=== PATIENT | male | born 1985 | race Two or more races ===

== ENCOUNTER 2017-03-03 09:48 | Emergency (ER) | payer BC ==
[2017-03-03] MEDS ORDERED: PREDNISONE 20 MG TABLET PO ONE (11:01)
[2017-03-03] MEDS ORDERED: ALBUTEROL SULFATE HFA (90 MCG/PUFF) 8 GM MDI (1 MDI/ER DISP) IH ONE (11:03)
[2017-03-03] MEDS ORDERED: PREDNISONE 20 MG TABLET ONE ×2 (11:13→11:14)
--- NOTE | 2017-03-03 11:13 | ER Document Report ---
ED General - General Chief Complaint: Chest Tightness Stated Complaint: SHORTNESS OF BREATHE Time Seen by Provider: 03/03/17 10:56 TRAVEL OUTSIDE OF THE [place] IN LAST 30 DAYS: No - HPI Patient complains to provider of: Shortness of breath chest tightness cough Notes: Patient coming in for evaluation of chest tightness shortness of breath and cough is ongoing since Sunday. 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 Denies any fevers chills nausea vomiting denies any recent travel denies history of smoking alcohol or drug abuse. Patient is actively coughing nonproductive upon my evaluation. - Related Data Allergies/Adverse Reactions: No Known Allergies Allergy (Verified 03/03/17 10:03) Past Medical History - Social History Smoking Status: Never Smoker Chew tobacco use (# tins/day): No Frequency of alcohol use: Occasional Drug Abuse: None Family History: Reviewed & Not Pertinent Patient has suicidal ideation: No Patient has homicidal ideation: No Renal/ Medical History: Denies: Hx Peritoneal Dialysis Review of Systems - Review of Systems Constitutional: No symptoms reported EENT: No symptoms reported Cardiovascular: No symptoms reported Respiratory: Short of breath Gastrointestinal: No symptoms reported Genitourinary: No symptoms reported Male Genitourinary: No symptoms reported Musculoskeletal: No symptoms reported Skin: No symptoms reported Hematologic/Lymphatic: No symptoms reported Neurological/Psychological: No symptoms reported -: Yes All other systems reviewed and negative Physical Exam - Vital signs Vitals: Temp Pulse Resp BP Pulse Ox 99.2 F 69 16 145/81 H 96 03/03/17 09:57 03/03/17 09:57 03/03/17 09:57 03/03/17 09:57 03/03/17 09:57 Interpretation: Normal - General General appearance: Appears well, Alert - HEENT Head: Normocephalic, Atraumatic Eyes: Normal Pupils: PERRL - Respiratory Respiratory status: No respiratory distress Chest status: Nontender Breath sounds: Wheezing - Scattered Chest palpation: Normal - Cardiovascular Rhythm: Regular Heart sounds: Normal auscultation Murmur: No - Abdominal Inspection: Normal Distension: No distension Bowel sounds: Normal Tenderness: Nontender Organomegaly: No organomegaly - Back Back: Normal, Nontender - Extremities General upper extremity: Normal inspection, Nontender, Normal color, Normal ROM , Normal temperature General lower extremity: Normal inspection, Nontender, Normal color, Normal ROM , Normal temperature, Normal weight bearing. No: Aydee's sign - Neurological Neuro grossly intact: Yes Cognition: Normal Orientation: AAOx4 Quirino Coma Scale Eye Opening: Spontaneous Quirino Coma Scale Verbal: Oriented Quirino Coma Scale Motor: Obeys Commands Quirino Coma Scale Total: 15 Speech: Normal Motor strength normal: LUE, RUE, LLE, RLE Sensory: Normal - Psychological Associated symptoms: Normal affect, Normal mood - Skin Skin Temperature: Warm Skin Moisture: Dry Skin Color: Normal Course - Re-evaluation Re-evalutation: 03/03/17 11:09 Patient more likely has viral URI. Will check a chest x-ray if negative will discharge home with bronchodilators prednisone and cough suppressant medication. - Vital Signs Vital signs: Temp Pulse Resp BP Pulse Ox 99.2 F 69 16 145/81 H 96 03/03/17 09:57 03/03/17 09:57 03/03/17 09:57 03/03/17 09:57 03/03/17 09:57 Discharge - Discharge Clinical Impression: Upper respiratory infection, viral Condition: Good Disposition: HOME, SELF-CARE Instructions: Upper Respiratory Illness ([facility]), Cough Suppressant & Expectorant Medications Additional Instructions: Take medications as prescribed to help with your symptoms. Return to the ER symptoms worsen. He may also try honey in tea or [id number] cough drops with menthol to aid in your cough. Please be aware to call medication prescribed this contain a narcotic and will make you sleepy. Prescriptions: Codeine Phosphate/Guaifenesin [Guaifen-Codeine 100-10 mg/5 ml] 5 ml PO Q6 #120 liquid Prednisone [Deltasone 20 mg Tablet] 3 tab PO DAILY #24 tablet Forms: Return to Work
--- NOTE | 2017-03-03 11:25 | RADIOLOGY REPORT (SQ) ---
EXAM DESCRIPTION: CHEST PA/LAT COMPLETED DATE/TIME: 03/03/2017 11:17 am REASON FOR STUDY: sob COMPARISON: None. EXAM PARAMETERS: NUMBER OF VIEWS: two views TECHNIQUE: Digital Frontal and Lateral radiographic views of the chest acquired. RADIATION DOSE: NA LIMITATIONS: none FINDINGS: LUNGS AND PLEURA: No opacities, masses or pneumothorax. No pleural effusion. MEDIASTINUM AND HILAR STRUCTURES: No masses or contour abnormalities. HEART AND VASCULAR STRUCTURES: Heart normal size. No evidence for failure. BONES: No acute findings. HARDWARE: None in the chest. OTHER: No other significant finding. IMPRESSION: NO SIGNIFICANT RADIOGRAPHIC FINDING IN THE CHEST. TECHNICAL DOCUMENTATION: JOB ID: [id number] [employer]- All Rights Reserved
--- NOTE | 2017-03-03 11:41 | EKG REPORT ---
SEVERITY:- NORMAL ECG - SINUS RHYTHM : Confirmed by: Saskia Dominguez 03-Mar-2017 11:41:03
[2017-03-03 12:06] VITALS: BP 140/78
== END 2017-03-03 12:06 | disposition home or self-care (01) ==
LOC: ER 09:48
DX: J06.9 Acute upper respiratory infection, unspecified (principal); R06.02 Shortness of breath; R07.9 Chest pain, unspecified
CPT/HCPCS: 93005; 99285; 71020; 93010; J7512; J3490